=== PATIENT | female | born 1960 | race Caucasian/White ===

== ENCOUNTER 2023-09-25 07:16 | Outpatient (CLI) | payer BC, SELFPAY ==
--- NOTE | 2023-09-25 08:10 | W.ANESCHARGE ---
Anesthesia Charges Start Date/Time Anesthesia Start Date: 09/25/23 Anesthesia Start Time: 07:47 Stop Date/Time Anesthesia Stop Date: 09/25/23 Anesthesia Stop Time: 08:08
--- NOTE | 2023-09-25 08:46 | W.ANESCHARGE ---
Anesthesia Charges Start Date/Time Anesthesia Start Date: 09/25/23 Anesthesia Start Time: 07:47 Stop Date/Time Anesthesia Stop Date: 09/25/23 Anesthesia Stop Time: 08:08
== END 2023-09-25 07:17 | disposition home or self-care (01) ==
LOC: OP CLINIC 07:21
PROVIDERS: PCP Family Medicine; Visit Provider Internal Medicine
DX: Z12.11 Encounter for screening for malignant neoplasm of colon (principal)
CPT/HCPCS: 00811; 00812; 45378; J2704